=== PATIENT | male | born 1955 | race Caucasian/White ===

== ENCOUNTER 2018-03-09 19:29 | Emergency (ER) | payer BC ==
[~2018-03-09] VITALS: Ht 165.1 cm; Wt 74.8 kg
[2018-03-09 20:04] VITALS: BP 134/78
--- NOTE | 2018-03-09 20:12 | NUR ---
PT ambulated to lobby with VSS.
--- NOTE | 2018-03-09 21:08 | NUR ---
PATIENT AMBULATED TO ER BED 2
--- NOTE | 2018-03-09 21:10 | NUR ---
62/M CAME IN ED, C/O 06/12 R INGUINAL PAIN X2 WEEK, WORSENING TODAY, NONRADIATING, WORSENING WHEN WALKING. R INGUINAL AREA NO OBVIOUS ABNORMALITIES, TENDER UPON PALPATION. ABD SOFT ROUND NONTENDER. PT DENIES FEVER, N/V/D, DYSURIA. LBM TODAY. AOX4, RR EVEN AND UNLABORED. HX HTN, [place] (2015), STENTS (RCA MID AND LAD MID). NKA.
[2018-03-09 22:43] VITALS: BP 113/60
== END 2018-03-09 22:43 | disposition home or self-care (01) ==
LOC: MED 19:29
DX: R10.31 Right lower quadrant pain (principal); K40.90 Unilateral inguinal hernia, without obstruction or gangrene, not specified as recurrent
CPT/HCPCS: 99283